=== PATIENT | male | born 1960 | race Asian ===

== ENCOUNTER 2017-07-15 13:04 | Emergency (ER) | payer OTHER ==
--- NOTE | 2017-07-15 13:50 | EDPHYS ---
Physician Documentation [facility] Name: Julius Dodd Age: 57 yrs Sex: Male : 1960 Arrival Date: 07/15/2017 Time: 13:07 Bed 12 Private MD: ED Physician Chava Grigsby HPI: 07/15 13:29 This 57 yrs old Male presents to ER via Ambulatory with complaints of rash cp bilateral arms. 13:29 The patient's rash thought to be caused by working outside exposed to "grass". The rash cp is located on the right arm and left arm and lower abdomen. The rash can be described as erythematous, vesicular. Onset: The symptoms/episode began/occurred last week. Associated signs and symptoms: Pertinent positives: itching, Pertinent negatives: difficulty breathing, fever, swelling of lips, swelling of throat, swelling of tongue. Historical: - Allergies: 13:17 No Known Allergies; la1 - PMHx: 13:17 None; la1 - Immunization history:: Adult Immunizations up to date. - Social history:: Smoking status: Patient/guardian denies using tobacco. ROS: 13:33 Eyes: Negative for injury, pain, redness, and discharge. cp 13:33 Constitutional: Negative for body aches, chills, fever, poor PO intake. 13:33 Cardiovascular: Negative for chest pain, edema, palpitations. 13:33 Respiratory: Negative for cough, shortness of breath, wheezing. 13:33 Abdomen/GI: Negative for abdominal pain, nausea, vomiting, and diarrhea. 13:33 Skin: Positive for rash, of the right arm and left arm and lower abdomen. 13:33 All other systems are negative. Exam: 13:40 Constitutional: The patient appears in no acute distress, alert, awake, non-toxic, well cp developed, well nourished. 13:40 Head/Face: Normocephalic, atraumatic. cp 13:40 Eyes: Periorbital structures: appear normal, Conjunctiva: normal, no exudate, no injection, Lids and lashes: appear normal, bilaterally. 13:40 ENT: External ear(s): are unremarkable, Nose: is normal, Mouth: is normal, Posterior pharynx: is normal, airway is patent. 13:40 Chest/axilla: Inspection: normal, Palpation: is normal, no crepitus, no tenderness. 13:40 Cardiovascular: Rate: normal, Rhythm: regular. 13:40 Respiratory: the patient does not display signs of respiratory distress, Respirations: normal, no use of accessory muscles, no retractions, no splinting, no tachypnea, labored breathing, is not present, Breath sounds: are clear throughout, no decreased breath sounds, no stridor, no wheezing. 13:40 Abdomen/GI: Exam negative for discomfort, distension, guarding, Inspection: abdomen appears normal. 13:40 Skin: rash can be described as erythematous, excoriated, vesicular, noted serosanguinous drainage, on the right arm and left arm and lower abdomen. Vital Signs: 13:17 BP 122 / 88; Pulse 74; Resp 19; Temp 97.4(TE); Pulse Ox 100% on R/A; Weight 81.65 kg la1 (R); MDM: 13:24 Patient medically screened. cp 13:45 Differential diagnosis: cellulitis, contact dermatitis, abscess. cp 13:48 Data reviewed: vital signs, nurses notes, and as a result, I will discharge patient. cp 13:48 Counseling: I had a detailed discussion with the patient and/or guardian regarding: the cp historical points, exam findings, and any diagnostic results supporting the discharge/admit diagnosis, the need for outpatient follow up, a family practitioner, to return to the emergency department if symptoms worsen or persist or if there are any questions or concerns that arise at home. Administered Medications: No medications were administered Disposition: 07/15/17 13:49 Discharged to Home. Impression: Irritant contact dermatitis. - Condition is Stable. - Discharge Instructions: Contact Dermatitis. - Prescriptions for Vistaril 50 mg Oral capsule - take 1 capsule by ORAL route 4 times per day As needed for itching; 30 capsule. prednisone 50 mg Oral tablet - take 1 tablet by ORAL route once daily; 5 tablet. Triamcinolone Acetonide 0.1 % Topical Ointment - apply 1 application by TOPICAL route every 12 hours As needed apply to areas of rash on arms and abdomen as directed; 1 tube. - Medication Reconciliation Form, Thank You Letter, Antibiotic Education, Prescription Opioid Use form. - Follow up: Private Physician; When: 1 - 2 days; Reason: Recheck today's complaints. - Problem is new. - Symptoms are unchanged. Addendum: 07/17/2017 08:55 Co-signature as Attending Physician, Chava Grigsby MD I agree with the assessment and c garcía plan of care. Signatures: Chava Grigsby MD MD cha Williams, Irene RN RN iw Steve Renteria RN RN la1 Chava Yarbrough PA PA cp Corrections: (The following items were deleted from the chart) 07/15 14:02 13:49 07/15/2017 13:49 Discharged to Home. Impression: Irritant contact dermatitis. iw Condition is Stable. Discharge Instructions: Contact Dermatitis. Prescriptions for Vistaril 50 mg Oral capsule - take 1 capsule by ORAL route 4 times per day As needed for itching; 30 capsule, prednisone 50 mg Oral tablet - take 1 tablet by ORAL route once daily; 5 tablet, Triamcinolone Acetonide 0.1 % Topical Ointment - apply 1 application by TOPICAL route every 12 hours As needed apply to areas of rash on arms and abdomen as directed; 1 tube. and Forms are Medication Reconciliation Form, Thank You Letter, Antibiotic Education, Prescription Opioid Use. Follow up: Private Physician; When: 1 - 2 days; Reason: Recheck today's complaints. Problem is new. Symptoms are unchanged. cp
--- NOTE | 2017-07-15 13:50 | ER ---
Nurse's Notes [facility] Name: Julius Dodd Age: 57 yrs Sex: Male : 1960 Arrival Date: 07/15/2017 Time: 13:07 Bed 12 Private MD: Diagnosis: Irritant contact dermatitis Presentation: 07/15 13:16 Presenting complaint: Patient states: I got bit by a bunch of ants one week ago and the la1 reaction just keeps getting worse. Bites on Mallika arms. Transition of care: patient was not received from another setting of care. Onset of symptoms was July 15, 2017. Initial Sepsis Screen: Does the patient meet any 2 criteria? No. Patient's initial sepsis screen is negative. Does the patient have a suspected source of infection? No. Patient's initial sepsis screen is negative. Care prior to arrival: None. 13:16 Method Of Arrival: Ambulatory la1 13:16 Acuity: PHILLY 4 la1 Triage Assessment: 14:01 Bite description: bite sustained to left arm and right arm by a fire ant, animal iw information: vaccination(s) is not applicable. Historical: - Allergies: 13:17 No Known Allergies; la1 - PMHx: 13:17 None; la1 - Immunization history:: Adult Immunizations up to date. - Social history:: Smoking status: Patient/guardian denies using tobacco. Screenin:01 Abuse screen: Denies threats or abuse. Denies injuries from another. Nutritional iw screening: No deficits noted. Tuberculosis screening: No symptoms or risk factors identified. Fall Risk None identified. Assessment: 13:40 General: Appears in no apparent distress. Behavior is calm, cooperative. Pain: iw Complains of pain in right arm and left arm. Neuro: Level of Consciousness is awake, alert, obeys commands, Oriented to person, place, time, situation, Moves all extremities. Full function. Cardiovascular: Patient's skin is warm and dry. Respiratory: Respiratory effort is even, unlabored, Respiratory pattern is regular, symmetrical. Derm: Skin has blisters on left, right forearm Skin is pink, warm \T\ dry. Musculoskeletal: Range of motion: intact in all extremities. Injury Description: Bite sustained to right arm and left arm caused by a fire ant. Vital Signs: 13:17 BP 122 / 88; Pulse 74; Resp 19; Temp 97.4(TE); Pulse Ox 100% on R/A; Weight 81.65 kg la1 (R); ED Course: 13:07 Patient arrived in ED. rg4 13:17 Triage completed. la1 13:17 Arm band placed on right wrist. la1 13:24 Chava Yarbrough PA is PHCP. cp 13:24 Chava Grigsby MD is Attending Physician. cp 13:54 Maria C Ramírez, RN is Primary Nurse. iw 14:01 Patient has correct armband on for positive identification. iw 14:01 No provider procedures requiring assistance completed. Patient did not have IV access iw during this emergency room visit. Administered Medications: No medications were administered Outcome: 13:49 Discharge ordered by MD. cp 14:01 Discharged to home ambulatory, with family. iw 14:01 Condition: good 14:01 Discharge instructions given to patient, Instructed on discharge instructions, follow up and referral plans. medication usage, Demonstrated understanding of instructions, follow-up care, medications, Prescriptions given X 3. 14:02 Patient left the ED. iw Signatures: Maria C Ramírez, KOBE BULLOCK Steve Renteria RN RN la1 Chava Yarbrough PA PA Viviane Hall rg4
== END 2017-07-15 14:02 | disposition home or self-care (01) ==
LOC: ER 13:04
DX: L24.9 Irritant contact dermatitis, unspecified cause (principal)
CPT/HCPCS: 99282